=== PATIENT | female | born 1980 | race Caucasian/White ===

== ENCOUNTER 2016-05-23 16:29 | Observation (INO) ==
[2016-05-23 17:21] LABS: Basophils # 0.1 K/mcL (0.0-0.2); Basophils % 0.8 %; Eosinophils # 0.9 K/mcL (0.0-0.6); Eosinophils % 6.3 %; Hematocrit 44.4 % (35.3-44.9); Hemoglobin 14.6 g/dL (11.5-15.4); Immature Granulocytes % 0.6 % (0-4); Lymphocytes # 2.3 K/mcL (0.6-4.6); Lymphocytes % 16.2 %; Mean Corpuscular HGB Conc 32.9 g/dL (31.6-35.5); Mean Corpuscular Hemoglobin 28.9 pg (28.0-33.3); Mean Corpuscular Volume 87.7 fL (83.0-100.0); Mean Platelet Volume 10.1 fL (9.4-12.4); Monocytes # 0.6 K/mcL (0.0-1.3); Monocytes % 4.1 %; Platelet Count 358 K/mcL (140-400); Red Blood Count 5.06 M/mcL (3.82-4.97); Red Cell Distribution Width 13.6 % (11.5-14.5)
[2016-05-23 17:28] LABS: Alanine Aminotransferase 22 Units/L (0-55); Albumin 3.5 g/dL (3.5-5.0); Albumin/Globulin Ratio 0.9 (1.1-2.2); Alkaline Phosphatase 105 Units/L (38-126); Amylase 31 Units/L (25-125); Aspartate Amino Transferase 13 Units/L (5-34); BUN/Creatinine Ratio 14 (6-26); Bilirubin,Direct 0.2 mg/dL (0.0-0.5); Bilirubin,Indirect 0.3 mg/dL (0.0-1.2); Bilirubin,Total 0.5 mg/dL (0.2-1.2); Blood Urea Nitrogen 11 mg/dL (7-20); Calcium 8.9 mg/dL (8.6-10.8); Carbon Dioxide 24 mEq/L (19-29); Chloride 104 mEq/L (98-109); Globulin 4.1 g/dL (2.4-3.5); Glucose 204 mg/dL (70-99); Lipase 11 Units/L (8-78); Osmolality,Calculated 287 (280-300); Sodium 136 mEq/L (136-145); Total Protein 7.6 g/dL (6.0-8.3); eGFR For African Americans > 60 (> 60); eGFR For Non-African Americans > 60 (> 60)
[2016-05-23 18:16] LABS: Bilirubin,Urine Negative (Negative); Blood,Urine Negative (Negative); Clarity,Urine Cloudy (Clear); Color,Urine Yellow (Yellow); Glucose,Urine (UA) 500 mg/dL (Normal); Ketones,Urine Negative (Negative); Leukocyte Esterase,Urine Small (Negative); Nitrite,Urine Negative (Negative); Protein,Urine 30 mg/dL (Neg-Trace); Specific Gravity,Urine > 1.030 (1.010-1.025); Urobilinogen,Urine Normal (Normal)
[2016-05-23 18:19] LABS: Bacteria,Urine Moderate per hpf (None-Few); Hyaline Casts,Urine None Seen per lpf (None-Few); Squamous Epithelial Cell,Urine Many per lpf (None-Few); WBC,Urine 15-30 per hpf (0-3)
[2016-05-23 18:28] LABS: RBC,Urine 0-3 per hpf (0-3)
--- NOTE | 2016-05-23 19:07 | Emergency Department Note ---
Disposition Clinical Impression: Obesity, Hyperglycemia, History of gallbladder disease, Elevated C-reactive protein (CRP), Leukocytosis, Cholelithiasis, UTI (urinary tract infection), Vomiting, Right sided abdominal pain, Sepsis Disposition: Admitted As Inpatient Referrals: NO,PCP [Primary Care Provider] - Forms: Work/School Release, ED Satisfaction Letter General Adult HPI - General Chief complaint: ED Abdominal Pain Stated complaint: Gall Stones Time Seen by Provider: 05/23/16 19:06 Source: patient, EMS Limitations: no limitations - History of Present Illness HPI Narrative: 35-year-old female with a history of gallstones reports emergency department complaining of abdominal pain. She feels the pain is all over the abdomen but seems to localize pain more on the right side. She is concerned about a gallbladder problem. The patient denies vaginal bleeding or discharge. No flank pain or no fever vomiting or diarrhea. The patient reports progressive abdominal pain for the last week, she also describes significant urinary frequency over the last week. There is no history of rash or trauma. No chest pain or shortness of breath. The patient has never had any abdominal surgery. She reports she may have felt somewhat hot. There is no history of cough runny nose ear pain or sore throat. The patient reports she has a known gallstone which is very large, she has been monitoring this for about 14 years. There is no history of fall syncope or injury. No trouble walking talking hearing seeing or speaking. There is no history of confusion or any difficulty moving the arms or legs independently. No headache or seizures or slurred speech reported. There is no history of yellowing of the skin or eyes. She states she has been taking acetaminophen but this has not been helpful. There is no history of bloody stool. Patient saw her primary care physician today who was concerned about potential acute cholecystitis or other acute intra-abdominal pathology, their note indicates that a CT scan should be considered for cholecystitis or pancreatitis. Onset (ago): day(s) Pain Scale: 8 - Related Data Allergies Allergy/AdvReac Type Severity Reaction Status Date / Time No Known Allergies Allergy Verified 05/23/16 16:41 All systems ED: reviewed and negative except as stated. Past Medical History - Past Medical History Medical history: Reports: CVA, other (Heart surgery, spinal surgery, ventriculoperitoneal shunt per patient) Psychiatric history: Reports: anxiety - Social History Smoking Status: Never smoker Smokeless Tobacco Status: No Alcohol use: Reports: none Drug use: Reports: none Physical Exam - General Limitations: no limitations General appearance: alert, in no apparent distress - Head Head exam: atraumatic, normocephalic, normal inspection - Eye Eye exam: Present: normal appearance, PERRL, EOMI. Absent: scleral icterus, conjunctival injection - ENT ENT exam: normal exam, normal oropharynx, mucous membranes moist - Neck Neck exam: Present: normal inspection, full ROM, trachea midline - Chest Chest inspection: Present: symmetric chest wall rise. Absent: tenderness - Respiratory Respiratory exam: Present: normal lung sounds bilaterally. Absent: respiratory distress - Cardiovascular Cardiovascular exam: Present: regular rate, normal rhythm, normal heart sounds - Abdominal Exam Abdominal exam: Present: soft, normal bowel sounds. Absent: distention, guarding, rebound, rigidity, organomegaly, trauma, Miranda's sign, Rovsing's sign , tenderness at McBurney's Point, ascites, pulsatile mass Abdominal tenderness: Present: RUQ, RLQ, moderate - Extremities Exam Extremities exam: Present: normal inspection, full ROM, normal capillary refill. Absent: tenderness, pedal edema, joint swelling, calf tenderness - Expanded Lower Extremity Exam Neurovascular/Tendon exam: Present: normal capillary refill. Absent: motor deficit, sensory deficit, tendon deficit, extremity cold to touch, pallor - Back Exam Back exam: Present: normal inspection, full ROM. Absent: tenderness, CVA tenderness (R), CVA tenderness (L), vertebral tenderness - Neurological Exam Neurological exam: Present: alert, oriented X3, CN II-XII intact. Absent: motor sensory deficit - Psychiatric Psychiatric exam: Present: normal affect, normal mood - Skin Skin exam: Present: warm, dry, intact, normal color. Absent: rash, cyanosis, diaphoresis, erythema, pallor, mottled Course Vital Signs Temperature 98.2 F 05/23/16 16:36 Pulse Rate 102 05/23/16 16:36 Respiratory Rate 16 05/23/16 16:36 Blood Pressure 116/80 05/23/16 16:36 O2 Sat by Pulse Oximetry 99 05/23/16 16:36 Temperature 98.2 F 05/23/16 16:36 Pulse Rate 102 05/23/16 16:36 Respiratory Rate 16 05/23/16 16:36 Blood Pressure 116/80 05/23/16 16:36 O2 Sat by Pulse Oximetry 99 05/23/16 16:36 Oxygen Delivery Oxygen Delivery Room Air Medical Decision Making - MDM Narrative Medical decision making narrative: The patient has a history of known gallbladder disease, she has an elevated white blood cell count with a neutrophil shift and elevated CRP. She seems to have some abdominal tenderness more on the right, but her Miranda's sign is negative, Rovsing's and McBurney's point are negative, and she does not localize pain particularly well. Her clinical examination does not indicate abbie peritonitis. Her urinalysis is suggestive of UTI. Her primary care physician was concerned about acute intra-abdominal processes and cites concerns for potential gallbladder disease or pancreatitis and felt a CT scan would be reasonable, so he sent the patient to the ED. The patient's CT scan reveals gallstone without evidence of acute cholecystitis and no other acute intra-abdominal process noted on preliminary report. Secondary examination reveals the patient's abdomen to be soft with persistent diffuse tenderness. The patient began actively retching in the emergency department and she did not feel comfortable going home. Additionally, the patient had an initial tachycardia with leukocytosis and a source for infection/urinary, she meets sepsis criteria. A lactic acid level has been ordered. The patient was treated for pain and nausea in the ED. Rocephin was given IV. IV fluids were also ordered. The patient's mean arterial pressure is 92. Nothing to suggest septic shock or severe sepsis at this time. A Lactic acid level is pending. I am concerned the patient may not be able tolerate by mouth medication for her UTI secondary to recurrent emesis in the ED.. She does complain of significant abdominal pain and does have noted gallbladder disease. Based on her recurrent emesis in the ED, laboratory abnormalities including UTI, and meeting baseline sepsis criteria, I thought it would be appropriate to observe the patient in the hospital. I discussed case with the hospitalist on-call. - Lab Data Lab results reviewed: Yes I reviewed the patient's lab results. Result diagrams: 05/23/16 17:04 05/23/16 17:04 Lab Results 05/23/16 05/23/16 05/23/16 Range/Units 17:04 17:04 17:04 WBC 13.9 H (4.3-11.1) K/mcL RBC 5.06 H (3.82-4.97) M/mcL Hgb 14.6 (11.5-15.4) g/dL Hct 44.4 (35.3-44.9) % MCV 87.7 (83.0-100.0) fL MCH 28.9 (28.0-33.3) pg MCHC 32.9 (31.6-35.5) g/dL RDW 13.6 (11.5-14.5) % Plt Count 358 (140-400) K/mcL MPV 10.1 (9.4-12.4) fL Immature Gran % 0.6 (0-4) % Seg Neutrophils % 72.0 % Lymphocytes % 16.2 % Monocytes % 4.1 % Eosinophils % 6.3 % Basophils % 0.8 % Neutrophils # 10.0 H (1.6-8.9) K/mcL Lymphocytes # 2.3 (0.6-4.6) K/mcL Monocytes # 0.6 (0.0-1.3) K/mcL Eosinophils # 0.9 H (0.0-0.6) K/mcL Basophils # 0.1 (0.0-0.2) K/mcL Sodium 136 (136-145) mEq/L Potassium 4.0 (3.5-4.5) mEq/L Chloride 104 (98-109) mEq/L Carbon Dioxide 24 (19-29) mEq/L BUN 11 (7-20) mg/dL Creatinine 0.81 (0.57-1.11) mg/dL Est GFR ( Amer) > 60 (> 60) Est GFR (Non-Af Amer) > 60 (> 60) BUN/Creatinine Ratio 14 (6-26) Glucose 204 H (70-99) mg/dL Calculated Osmolality 287 (280-300) Calcium 8.9 (8.6-10.8) mg/dL Total Bilirubin 0.5 (0.2-1.2) mg/dL Direct Bilirubin 0.2 (0.0-0.5) mg/dL Indirect Bilirubin 0.3 (0.0-1.2) mg/dL AST 13 (5-34) Units/L ALT 22 (0-55) Units/L Alkaline Phosphatase 105 (38-126) Units/L C-Reactive Protein (Less than 5) mg/L Serum Total Protein 7.6 (6.0-8.3) g/dL Albumin 3.5 (3.5-5.0) g/dL Globulin 4.1 H (2.4-3.5) g/dL Albumin/Globulin Ratio 0.9 L (1.1-2.2) Amylase 31 (25-125) Units/L Lipase 11 (8-78) Units/L Serum , Qual Negative (Negative) Urine Color (Yellow) Urine Clarity (Clear) Urine pH (5.0-8.0) pH Units Ur Specific Mcclure (1.010-1.025) Urine Protein (Neg-Trace) mg/dL Urine Glucose (UA) (Normal) mg/dL Urine Ketones (Negative) mg/dL Urine Blood (Negative) Urine Nitrite (Negative) Urine Bilirubin (Negative) Urine Urobilinogen (Normal) mg/dL Ur Leukocyte Esterase (Negative) Urine Microscopic RBC (0-3) per hpf Urine Microscopic WBC (0-3) per hpf Ur Squamous Epith Cells (None-Few) per lpf Urine Bacteria (None-Few) per hpf Hyaline Casts (None-Few) per lpf Ur Culture Indicated? (NO) Acetaminophen (10-30) mcg/mL 05/23/16 05/23/16 05/23/16 Range/Units 17:04 17:04 18:05 WBC (4.3-11.1) K/mcL RBC (3.82-4.97) M/mcL Hgb (11.5-15.4) g/dL Hct (35.3-44.9) % MCV (83.0-100.0) fL MCH (28.0-33.3) pg MCHC (31.6-35.5) g/dL RDW (11.5-14.5) % Plt Count (140-400) K/mcL MPV (9.4-12.4) fL Immature Gran % (0-4) % Seg Neutrophils % % Lymphocytes % % Monocytes % % Eosinophils % % Basophils % % Neutrophils # (1.6-8.9) K/mcL Lymphocytes # (0.6-4.6) K/mcL Monocytes # (0.0-1.3) K/mcL Eosinophils # (0.0-0.6) K/mcL Basophils # (0.0-0.2) K/mcL Sodium (136-145) mEq/L Potassium (3.5-4.5) mEq/L Chloride (98-109) mEq/L Carbon Dioxide (19-29) mEq/L BUN (7-20) mg/dL Creatinine (0.57-1.11) mg/dL Est GFR ( Amer) (> 60) Est GFR (Non-Af Amer) (> 60) BUN/Creatinine Ratio (6-26) Glucose (70-99) mg/dL Calculated Osmolality (280-300) Calcium (8.6-10.8) mg/dL Total Bilirubin (0.2-1.2) mg/dL Direct Bilirubin (0.0-0.5) mg/dL Indirect Bilirubin (0.0-1.2) mg/dL AST (5-34) Units/L ALT (0-55) Units/L Alkaline Phosphatase (38-126) Units/L C-Reactive Protein 32 H (Less than 5) mg/L Serum Total Protein (6.0-8.3) g/dL Albumin (3.5-5.0) g/dL Globulin (2.4-3.5) g/dL Albumin/Globulin Ratio (1.1-2.2) Amylase (25-125) Units/L Lipase (8-78) Units/L Serum , Qual (Negative) Urine Color Yellow (Yellow) Urine Clarity Cloudy A (Clear) Urine pH 6.0 (5.0-8.0) pH Units Ur Specific Mcclure > 1.030 H (1.010-1.025) Urine Protein 30 H (Neg-Trace) mg/dL Urine Glucose (UA) 500 H (Normal) mg/dL Urine Ketones Negative (Negative) mg/dL Urine Blood Negative (Negative) Urine Nitrite Negative (Negative) Urine Bilirubin Negative (Negative) Urine Urobilinogen Normal (Normal) mg/dL Ur Leukocyte Esterase Small H (Negative) Urine Microscopic RBC 0-3 (0-3) per hpf Urine Microscopic WBC 15-30 H (0-3) per hpf Ur Squamous Epith Cells Many H (None-Few) per lpf Urine Bacteria Moderate H (None-Few) per hpf Hyaline Casts None Seen (None-Few) per lpf Ur Culture Indicated? YES A (NO) Acetaminophen < 1.0 L (10-30) mcg/mL - Radiology Data Radiology results reviewed: Yes I reviewed the patient's radiology results.
[2016-05-23] MEDS ORDERED: *HR* HYDROmorphone (PF) 1 MG/ML SYRINGE IVP ONE (19:31)
[2016-05-23] MEDS ORDERED: Ondansetron 4 MG/2 ML VIAL IVP ONE (19:31)
[2016-05-23] MEDS ORDERED: 0.9 % Sodium Chloride 1,000 ML IVC ONE (21:05)
[2016-05-23] MEDS: 0.9 % Sodium Chloride 1,000 ML IVC SCH ×2 (21:17→22:32)
[2016-05-24] MEDS ORDERED: Ondansetron 4 MG/2 ML VIAL IVP PRN (00:14)
[2016-05-24] MEDS: 0.9 % Sodium Chloride 1,000 ML IVC SCH ×2 (00:51→16:46)
[2016-05-24] MEDS ORDERED: Acetaminophen 325 MG TABLET PO PRN (01:10)
[2016-05-24] MEDS ORDERED: Naloxone 0.4 MG/ML INJ IVP PRN (01:10)
[2016-05-24] MEDS ORDERED: *HR* Morphine 2 MG/ML SYRINGE IVP PRN (01:10)
[2016-05-24] MEDS ORDERED: D5% in Water 1,000 ML IV PRN (01:13)
[2016-05-24] MEDS ORDERED: *HR* Dextrose 50 % in Water (Syg) 50 ML SYRINGE IVP PRN (01:13)
[2016-05-24] MEDS ORDERED: Dextrose Gel 15 GM PO PRN ×2 (01:13)
[2016-05-24] MEDS ORDERED: Promethazine 12.5 MG in 0.9 % Sodium Chloride 50 ML IVPB PRN (01:14)
[2016-05-24] MEDS ORDERED: 0.9 % Sodium Chloride w KCl 20 MEQ/1,000 ML MLS IVC SCH (01:15)
[2016-05-24 04:53] LABS: Activated Partial Thrombo Time 26.4 Seconds (26.0-36.0); INR 1.1; Prothrombin Time 12.2 Seconds (9.4-12.1)
[2016-05-24 05:48] LABS: Basophils # 0.1 K/mcL (0.0-0.2); Basophils % 0.3 %; Eosinophils % 0.2 %; Immature Granulocytes % 0.5 % (0-4); Lymphocytes # 1.1 K/mcL (0.6-4.6); Lymphocytes % 6.8 %; Mean Corpuscular HGB Conc 33.7 g/dL (31.6-35.5); Mean Corpuscular Hemoglobin 29.6 pg (28.0-33.3); Mean Platelet Volume 11.1 fL (9.4-12.4); Monocytes # 0.4 K/mcL (0.0-1.3); Monocytes % 2.3 %; Neutrophils # 14.9 K/mcL (1.6-8.9); Platelet Count 320 K/mcL (140-400); Red Blood Count 4.32 M/mcL (3.82-4.97); Red Cell Distribution Width 13.6 % (11.5-14.5); Segmented Neutrophils % 89.9 %
[2016-05-24 05:49] LABS: Hemoglobin 12.8 g/dL (11.5-15.4)
[2016-05-24 05:53] LABS: Alanine Aminotransferase 23 Units/L (0-55); Albumin 3.3 g/dL (3.5-5.0); Albumin/Globulin Ratio 0.9 (1.1-2.2); Alkaline Phosphatase 118 Units/L (38-126); Aspartate Amino Transferase 18 Units/L (5-34); BUN/Creatinine Ratio 13 (6-26); Bilirubin,Total 0.6 mg/dL (0.2-1.2); Blood Urea Nitrogen 10 mg/dL (7-20); Calcium 8.5 mg/dL (8.6-10.8); Carbon Dioxide 19 mEq/L (19-29); Chloride 106 mEq/L (98-109); Chol/HDL Ratio 4.3 (0-4.9); Cholesterol 150 mg/dL (< 200); Globulin 3.7 g/dL (2.4-3.5); Glucose 269 mg/dL (70-99); HDL Cholesterol 35 mg/dL (40-59); LDL Cholesterol,Calculated 103 mg/dL (0-99); Magnesium 1.7 mg/dL (1.6-2.6); Osmolality,Calculated 293 (280-300); Potassium 4.1 mEq/L (3.5-4.5); Sodium 137 mEq/L (136-145); Triglycerides 59 mg/dL (< 150); eGFR For African Americans > 60 (> 60); eGFR For Non-African Americans > 60 (> 60)
[2016-05-24] MEDS ORDERED: *HR* Heparin 5,000 UNIT/ML VIAL SQ SCH (06:00)
[2016-05-24] MEDS ORDERED: MetroNIDAZOLE 500 MG/100 ML 500 MG/100 ML BAG IVPB SCH (08:00)
[2016-05-24] MEDS: Insulin LISPRO 300 UNITS/3 ML VIAL SQ SCH ×2 (08:03→12:49)
[2016-05-24] MEDS ORDERED: Pantoprazole 40 MG VIAL IVP SCH (09:00)
[2016-05-24 15:01] VITALS: BP 121/79
--- NOTE | 2016-05-24 16:37 | Discharge Summary ---
Date of Encounter: 05/24/16 Time of Encounter: 16:00 - Discharge Diagnosis (1) Obesity Status: Acute (2) History of gallbladder disease Status: Acute (3) UTI (urinary tract infection) Status: Acute - Discharge Medications Home Medications: No Known Home Drugs 05/23/16 [History] Allergies/Adverse Reactions: Allergies No Known Allergies Allergy (Verified 05/23/16 16:41) Procedures/tests Complete & Pending: Procedures Performed prior 72 hours Category Date Time Status US gall bladder [US] Routine Exams 05/24/16 09:00 Completed Date of admission: 05/23/16 22:17 Primary care physician: PCP ANGELA Discharging clinician: Marlene Davis Anticipated date of discharge: 05/24/16 - Discharge Instructions Follow Up With: ANGELA,PCP [Primary Care Provider] - Hospital course: Ms. Seymour is a 35 year old female - Time Spent with Patient Total time spent providing and/or coordinating discharge services: - Constitutional Vitals: Temp Pulse Resp BP Pulse Ox 97.6 F 82 17 121/79 95 05/24/16 15:01 05/24/16 15:01 05/24/16 15:01 05/24/16 15:01 05/24/16 15:01
--- NOTE | 2016-05-24 16:41 | Internal Med Progress Note ---
- Assessment and plan (1) Obesity Current Visit: Yes Status: Acute (2) History of gallbladder disease Current Visit: Yes Status: Acute (3) UTI (urinary tract infection) Current Visit: Yes Status: Acute - Constitutional Vitals: Temp Pulse Resp BP Pulse Ox 97.6 F 82 17 121/79 95 05/24/16 15:01 05/24/16 15:01 05/24/16 15:01 05/24/16 15:01 05/24/16 15:01 Internal Medicine: Result - Labs CBC & Chem 7: 05/24/16 01:59 05/24/16 01:58 Labs: Short CBC 05/24/16 Range/Units 01:59 WBC 16.5 H (4.3-11.1) K/mcL Hgb 12.8 D (11.5-15.4) g/dL Hct 38.0 (35.3-44.9) % Plt Count 320 (140-400) K/mcL Neutrophils # 14.9 H (1.6-8.9) K/mcL BMP 05/24/16 01:58 Sodium 137 Potassium 4.1 Chloride 106 Carbon Dioxide 19 BUN 10 Creatinine 0.79 Glucose 269 H Calcium 8.5 L Liver Function 05/24/16 Range/Units 01:58 Total Bilirubin 0.6 (0.2-1.2) mg/dL AST 18 (5-34) Units/L ALT 23 (0-55) Units/L Alkaline Phosphatase 118 (38-126) Units/L Albumin 3.3 L (3.5-5.0) g/dL - ABG Interpretation ABG results: PT/INR, D-dimer PT 12.2 Seconds (9.4-12.1) H 05/24/16 01:58 - Impressions Impressions Gallbladder Ultrasound 05/24/16 09:00 IMPRESSION: Cholelithiasis without sonographic evidence of cholecystitis. D/ / 05/24/2016 10:00:52 Bryson Romero MD / [facility]arter Interpreting Provider: Bryson Romero MD Consult Discharge Plan - Plan Referrals: NO,PCP [Primary Care Provider] -
--- NOTE | 2016-05-24 16:56 | Discharge Summary ---
Date of Encounter: 05/24/16 Time of Encounter: 16:20 - Discharge Diagnosis (1) History of gallbladder disease Priority: Primary Status: Chronic Comments: Pt has known history of cholelithiasis. Pt has been having increasing abd pain, RUQ pain for several days. GB US showed today showed cholelithiasis withoug evidence of chlecystitis.No intrahepatic biliary ductal dilatation. Pt was treated by admitting physician with flagyl and cipro for both GI and symptoms. Pt denies n/v at this time and abd is tender to palpation, but she states this is normal. Pt has leukocytosis, most likely from UTI. (2) UTI (urinary tract infection) Priority: Secondary Status: Acute Comments: Pt was treated for UTI in ED, many bacteria and leukocyte esterase. Pt reports urinary frequency over the last week. Urine culture negative for pathogens. Pt has been treated with Cipro and Flagyl. Will be sent home with Macrobid. Pt will need to follow up with PCP within the next few days. Qualifiers: Urinary tract infection type: acute cystitis Hematuria presence: without hematuria Qualified Code(s): N30.00 - Acute cystitis without hematuria (3) Leukocytosis Priority: Secondary Status: Acute Comments: Pt with WBC 16.5. Pt negative for cholecystitis and urine grew no pathogens. Pt has been afebrile and normotensive, pulse wnl. Qualifiers: Leukocytosis type: other Qualified Code(s): D72.828 - Other elevated white blood cell count (4) Hyperglycemia Priority: Secondary Status: Acute Comments: Pt denies being diabetic, however urine and serum glucose are both elevated. Discussed lifestyle modifications with pt and will refer to cosmetology educator. (5) Obesity Priority: Secondary Status: Chronic Comments: BMI 43.9 Lifestyle modifications Qualifiers: Obesity type: due to excess calories Qualified Code(s): E66.01 - Morbid ( severe) obesity due to excess calories - Discharge Medications Prescriptions: Nitrofurantoin Monohyd/M-Cryst [Macrobid 100 mg Capsule] 100 mg PO BID #10 capsule Phenazopyridine HCl [Pyridium] 200 mg PO TIDAC PRN #6 tab PRN Reason: Pain Home Medications: Nitrofurantoin Monohyd/M-Cryst [Macrobid 100 mg Capsule] 100 mg PO BID #10 capsule 05/24/16 [Rx] Phenazopyridine HCl [Pyridium] 200 mg PO TIDAC PRN #6 tab 05/24/16 [Rx] Allergies/Adverse Reactions: Allergies No Known Allergies Allergy (Verified 05/23/16 16:41) Procedures/tests Complete & Pending: Procedures Performed prior 72 hours Category Date Time Status US gall bladder [US] Routine Exams 05/24/16 09:00 Completed Date of admission: 05/23/16 22:17 Primary care physician: PCP NO Discharging clinician: Marlene Davis Anticipated date of discharge: 05/24/16 - Patient Status Disposition: Home, Self-Care Condition: Good Functional capacity at discharge: independent ambulation Overall status at discharge: patient is back to baseline - Discharge Instructions Instructions: Urinary Tract Infection in Women (DC) Follow Up With: NO,PCP [Primary Care Provider] - Additional Instructions: Please follow up with your doctor in the next few days to recheck your urine You also need to discuss with your doctor your elevated blood sugars Please return immediately if you have any other problems or concerns. - Diet and Activity Activity: increase activity as tolerated, resume usual activities as tolerated Diet: advance to your usual diet Hospital course: Ms. Seymour is a 35 year old female who presented to the ED last night for RUQ pain and urinary frequency for about a week. Pt was treated for both GI and symptoms with Flagyl and Cipro IV. WBC >16 this a.m. Pt had negative GBUS and urine culture did not grow any pathogens. Pt will still be sent home with Macrobid and pyridium. Pt refuses to stay and wants to sign out AMA. Pt states that she misses her dogs and hasn't had any real food for 2 days. She also states that she will not have a ride home in the a.m. Pt declined a regular meal tray and declined my offer of money for a bus ride home in the a.m. Pt denies abd pain at this time and states that she feels better. I strongly encouraged pt to stay until the a.m.to have labs redrawn, she refuses. I did discuss hyperglycemia with pt and discussed lifestyle modification, diet. Pt will be referred to staff educator. - Time Spent with Patient Total time spent providing and/or coordinating discharge services: Less than 30 minutes - Constitutional Vitals: Temp Pulse Resp BP Pulse Ox 97.6 F 82 17 121/79 95 03/16/17 15:01 05/24/16 15:01 05/24/16 15:01 05/24/16 15:01 05/24/16 15:01 General appearance: Present: A&O X 3, morbidly obese, no acute distress, answers questions appropriately - Head Head exam: Present: normal inspection - Eye Eye exam: Present: normal appearance, conjuntiva pink. Absent: nystagmus - ENT ENT exam: Present: mucous membranes moist, normal exam - Neck Neck exam general surgery: Present: normal inspection. Absent: lymphadenopathy , tenderness - Respiratory Respiratory exam: Present: CTAB. Absent: rales, respiratory distress, rhonchi, stridor, wheezes, tachypnea - Cardiovascular Cardiovascular exam: Present: RRR, +S1, +S2. Absent: diastolic murmur, systolic murmur - GI/Abdominal GI/Abdominal exam: Present: soft. Absent: hepatomegaly, tenderness - Extremities Exam Extremities exam: Present: normal inspection, tenderness, warm. Absent: cyanotic, joint swelling, normal capillary refill, pedal edema - Neurological Exam Neurological exam: Present: altered, oriented X3, no focal deficits. Absent: facial droop, speech deficit
== END 2016-05-24 18:05 | disposition home or self-care (01) ==
LOC: EMEROO 16:29 → 3BNU 16:29
PROVIDERS: ADMIT Internal Medicine; ATTEND Registered Nurse